=== PATIENT | female | born 1975 | race Hispanic/Latino ===

== ENCOUNTER → 2017-10-08 | Outpatient (CLI) | payer OTHER | END | disposition home or self-care (01) | LOC: RAH 14:46 | PROVIDERS: ATTEND Nurse Practitioner Adult Health | DX: Z12.31 Encounter for screening mammogram for malignant neoplasm of breast (principal) | CPT/HCPCS: 77067 ==

== ENCOUNTER → 2018-06-01 | Outpatient (CLI) | payer OTHER ==
[2018-06-01 09:02] LABS: BASOPHILS % (AUTO) 1.1 % (0.0-5.0); EOSINOPHILS % (AUTO) 2.5 % (0.0-8.0); HEMATOCRIT 39.3 % (36-48); LYMPHOCYTES % (AUTO) 24.6 % (21.0-51.0); MEAN CORPUSCULAR HEMOGLOBIN 29.9 pg (27.0-33.0); MEAN CORPUSCULAR HGB CONC 34.8 g/dL (32.0-36.0); NEUTROPHILS % (AUTO) 64.8 % (40.0-77.0); PLATELET COUNT (AUTO) 345 K/uL (130-400); RED BLOOD CELL COUNT(AUTO) 4.58 MIL/uL (4.00-5.50); RED CELL DISTRIBUTION WIDTH 13.2 % (11.0-15.5); WHITE BLOOD COUNT (AUTO) 6.3 K/uL (4.8-10.8)
[2018-06-01 09:27] LABS: ALBUMIN 3.5 g/dL (3.5-5.0); BILIRUBIN,TOTAL 0.5 mg/dL (0.2-1.0); CREATININE 0.6 mg/dL (0.5-1.5); POTASSIUM 4.5 mmol/L (3.5-5.1); THYROID STIMULATING HORMONE 0.98 uIU/mL (0.36-3.74); TOTAL PROTEIN, SERUM 7.5 g/dL (6.0-8.3)
== END | disposition home or self-care (01) ==
LOC: LAB 08:18
PROVIDERS: ATTEND Internal Medicine
DX: I10 Essential (primary) hypertension (principal)
CPT/HCPCS: 36415; 80053; 80061; 84439; 84443; 84481; 85025

== ENCOUNTER → 2018-11-30 | Outpatient (CLI) | payer OTHER | END | disposition home or self-care (01) | LOC: RAH 10:23 | PROVIDERS: ATTEND Internal Medicine | DX: Z80.3 Family history of malignant neoplasm of breast (principal) | CPT/HCPCS: 77066 ==

== ENCOUNTER → 2020-02-24 | Outpatient (CLI) | payer OTHER | END | disposition home or self-care (01) | LOC: RAH 15:42 | PROVIDERS: ATTEND Internal Medicine | DX: R22.1 Localized swelling, mass and lump, neck (principal) | CPT/HCPCS: 76536 ==

== ENCOUNTER → 2020-04-04 | Outpatient (CLI) | payer OTHER | END | disposition home or self-care (01) | LOC: RAH 13:07 | PROVIDERS: ATTEND Physician Assistant Medical | DX: N64.89 Other specified disorders of breast (principal); N60.19 Diffuse cystic mastopathy of unspecified breast; Z80.3 Family history of malignant neoplasm of breast | CPT/HCPCS: 77066 ==

== ENCOUNTER → 2020-10-22 | Outpatient (CLI) | payer OTHER ==
[2020-10-22 08:03] LABS: BASOPHILS % (AUTO) 0.7 % (0.0-5.0); EOSINOPHILS % (AUTO) 3.5 % (0.0-8.0); HEMATOCRIT 39.9 % (36-48); LYMPHOCYTES % (AUTO) 26.1 % (21.0-51.0); MEAN CORPUSCULAR HEMOGLOBIN 28.6 pg (27.0-33.0); MEAN CORPUSCULAR HGB CONC 33.1 g/dL (32.0-36.0); MEAN CORPUSCULAR VOLUME 86.4 fL (79-99); MONOCYTES % (AUTO) 8.1 % (3.0-13.0); NEUTROPHILS % (AUTO) 61.4 % (40.0-77.0); PLATELET COUNT (AUTO) 372 K/uL (130-400); RED BLOOD CELL COUNT(AUTO) 4.62 MIL/uL (4.00-5.50); WHITE BLOOD COUNT (AUTO) 8.3 K/uL (4.8-10.8)
[2020-10-22 08:10] LABS: HEMOGLOBIN A1C 5.3 % (4.0-6.0)
[2020-10-22 08:19] LABS: ALBUMIN 3.3 g/dL (3.5-5.0); BILIRUBIN,TOTAL 0.3 mg/dL (0.2-1.0); CREATININE 0.5 mg/dL (0.5-1.5); POTASSIUM 4.3 mmol/L (3.5-5.1); TOTAL PROTEIN, SERUM 7.3 g/dL (6.0-8.3)
== END | disposition home or self-care (01) ==
LOC: LAB 07:47
PROVIDERS: ATTEND Internal Medicine
DX: I10 Essential (primary) hypertension (principal); E66.9 Obesity, unspecified; Z00.00 Encounter for general adult medical examination without abnormal findings
CPT/HCPCS: 36415; 80053; 80061; 83036; 85025

== ENCOUNTER → 2022-05-22 | Outpatient (CLI) | payer OTHER | END | disposition home or self-care (01) | LOC: RAH 11:10 | PROVIDERS: ATTEND Obstetrics & Gynecology | DX: Z12.31 Encounter for screening mammogram for malignant neoplasm of breast (principal) | CPT/HCPCS: 77067 ==

== ENCOUNTER → 2023-05-29 | Outpatient (CLI) | payer OTHER | END | disposition home or self-care (01) | LOC: RAH 13:13 | PROVIDERS: ATTEND Obstetrics & Gynecology | DX: Z12.31 Encounter for screening mammogram for malignant neoplasm of breast (principal) | CPT/HCPCS: 77067 ==

== ENCOUNTER → 2023-10-21 | Outpatient (CLI) | payer OTHER | END | disposition home or self-care (01) | LOC: RAH 15:33 | PROVIDERS: ATTEND Clinical Nurse Specialist Family Health | DX: M19.011 Primary osteoarthritis, right shoulder (principal); M25.511 Pain in right shoulder | CPT/HCPCS: 73030 ==

== ENCOUNTER → 2024-04-28 | Outpatient (CLI) | payer OTHER ==
--- NOTE | 2024-04-28 10:14 | HMCIMG ---
MRI OF THE SHOULDER WITHOUT GADOLINIUM, right Technique: The examination is done with sagittal T1 and inversion recovery sequences, axial GRE sequence and coronal inversion recovery, proton density and T2 weighted [id number] sequences. FINDINGS: The rotator cuff tendon appears unremarkable. Specifically, the supraspinatus, infraspinatus, teres minor, and subscapularis components are preserved. There is a small simple cyst measuring 12 mm is noted projecting posterior and superior to the supraspinatus muscle. This is of uncertain etiology. The acromioclavicular joint is preserved. The acromiohumeral space is preserved. The coracoclavicular and coracohumeral ligaments are intact. The biceps anchor is well seen, without significant tears. The biceps tendon runs in the bicipital groove without significant high signal intensity to suggest sprain. No displacement is seen from the groove itself. The structures of the labrum are intact. There is no SLAP tear. No significant abnormalities of the posterior, inferior, or inferior labral structures are seen either. No paralabral cysts are seen. The superior, middle, and inferior glenohumeral ligaments are intact. Glenohumeral joint cartilage is preserved. There is no evidence of chondromalacia. No loose intra-articular chondroid bodies are identified. The osseous structures of the shoulder joint to include the visualized segments of humeral head, neck, and shaft as well as the glenoid bone itself, the acromion, the coracoid, portions of the scapula and the distal portion of the clavicle are intact. The supraglenoid notch is clear without evidence of space occupying lesions or tumor. The structures of the joint capsule are preserved. The limited examination of the deltoid and the limited visualized portions of the pectoralis major are intact. IMPRESSION: There is a small simple cyst measuring 12 mm is noted projecting posterior and superior to the supraspinatus muscle. This is of uncertain etiology. Otherwise normal SHOULDER. NO ROTATOR CUFF TENDON TEAR SEEN.
== END | disposition home or self-care (01) ==
LOC: RAH 08:42
PROVIDERS: ATTEND Orthopaedic Surgery
DX: M24.111 Other articular cartilage disorders, right shoulder (principal)
CPT/HCPCS: 73221

== ENCOUNTER → 2024-06-07 | Outpatient (CLI) | payer OTHER ==
--- NOTE | 2024-06-07 10:20 | HMCIMG ---
Exam Type: MAMMO SCREENING BILATERAL Clinical Information: ANNUAL SCREENING Comparison: May 29, 2023 Technique: Bilateral mammogram with CAD was performed with CC and MLO projections. FINDINGS: Breast parenchyma is heterogeneously dense which lowers the sensitivity of the mammographic examination. No dominant mass or suspicious microcalcification identified. There is no nipple retraction or skin thickening. Benign-appearing calcifications are seen. CAD shows no worrisome regions. IMPRESSION: 1. No mammographic signs of malignancy. 2. Routine follow-up recommended. CATEGORY 2: BENIGN FINDINGS Note: A negative x-ray should not delay biopsy if a dominant or clinically suspicious mass is present, since 8-10% of cancers are not identified by mammography. Dense breasts may obscure an underlying neoplasm.
== END | disposition home or self-care (01) ==
LOC: RAH 08:17
PROVIDERS: ATTEND Obstetrics & Gynecology
DX: Z12.31 Encounter for screening mammogram for malignant neoplasm of breast (principal); R92.1 Mammographic calcification found on diagnostic imaging of breast; R92.333 Mammographic heterogeneous density, bilateral breasts
CPT/HCPCS: 77067